=== PATIENT | female | born 1990 | race Asian ===

== ENCOUNTER 2019-07-09 19:27 | Emergency (ER) | payer OTHER ==
[~2019-07-09] VITALS: Ht 167.6 cm; Wt 53.5 kg
[2019-07-09] MEDS ORDERED: PHENERGAN SUPP25 MG RECTAL (19:34)
--- NOTE | 2019-07-09 19:40 | NUR ---
ER Nurse Note: Pt walked in c/o LT knee pain injury d/t falling off bird scooter. Pt stated her scooter landed on her knee around 1920. Open wound, bleeding, fatty tissue showing; site raised, warm to touch. Cap refill less than 3 sec, pedial pulses felt bilaterally, strong and equal. Will continue to montior.
[2019-07-09] MEDS ORDERED: Lidocaine 2% 20mg/ml/Epi 0.005mg/ml 20ml vial INJ ONE (20:00)
[2019-07-09] MEDS ORDERED: HYDROcodone/Acetamin 5/325 tab ORAL ONE (20:00)
--- NOTE | 2019-07-09 20:46 | Diagnostic Imaging Report ---
INDICATION: Knee Pain COMPARISON: None 3 views of the left knee were obtained. FINDINGS: There is a soft tissue air noted over the anterior part of the knee. Part of this is a laceration injury. There may be air in the joint. No acute fracture or radiopaque foreign body are identified. IMPRESSION: Soft tissue laceration. Joint effusion and intra-articular air may be present.
--- NOTE | 2019-07-09 21:00 | NUR ---
ER Nurse Note: ER PA applying kenny with assist of audiovisual aids technician. All orders completed per ER PA orders. Pt a&ox4, VSS, pedal pulses felt before procedure. Will continue to montior
--- NOTE | 2019-07-09 21:25 | Emergency Room Report ---
History of Present Illness General Chief Complaint: Lower Extremity Injury Source: Patient Present Illness HPI 29-year-old female presents to the emergency department complaining of 7 and 10 in severity localized pain to the left knee area status post mechanical fall off of a bird scooter prior to arrival. Patient reports falling into gravel and she sustained a laceration to left knee among several abrasions to the dorsum of the bilateral feet. Patient states she did not hit her head she did not lose consciousness and she does not have any midline neck or back pain. Patient reports she is able to bear weight she reports palpation near the laceration causes her pain. She denies paresthesias she denies persistent bleeding. Patient denies taking blood thinning medications. Patient states she is up-to-date with her tetanus. No aggravating or relieving factors otherwise. Allergies: Coded Allergies: No Known Allergies (Unverified , 07/09/19) Patient History Past Medical History: see triage record Past Surgical History: none Pertinent Family History: none Last Menstrual Period: 06/11/19 Now: No Immunizations: UTD Reviewed Nursing Documentation: PMH: Agreed; PSxH: Agreed Nursing Documentation-PMH Past Medical History: No Stated History Review of Systems All Other Systems: negative except mentioned in HPI Physical Exam Vital Signs Date Time Temp Pulse Resp B/P (MAP) Pulse Ox O2 Delivery O2 Flow Rate FiO2 07/09/19 19:31 98.1 67 18 112/73 (86) 100 Room Air Sp02 EP Interpretation: reviewed, normal General Appearance: no apparent distress, alert, GCS 15, non-toxic Head: normocephalic, atraumatic Eyes: bilateral eye normal inspection, bilateral eye PERRL ENT: hearing grossly normal, normal voice Neck: full range of motion Respiratory: chest non-tender, lungs clear, normal breath sounds, speaking full sentences Cardiovascular #1: regular rate, rhythm, normal capillary refill Cardiovascular #2: 2+ dorsalis pedis (L) - post. tib. Musculoskeletal: back normal, gait/station normal - Compensatory favoring the left leg. able to bear weight, normal range of motion, tender - TTP to the anterior left knee, abrasion and bruising noted. Laceration just proximal to the Left knee that is grossly contaminated. No increased laxity, no obvious bony deformity. Neurologic: alert, oriented x3, responsive, motor strength/tone normal, sensory intact, speech normal, grossly normal Psychiatric: judgement/insight normal Skin: laceration - Left distal Thigh laceration just proximal to the knee, it is approx 8 cm in length, grossly contaminated. , abrasion - superficial abrasions to the dorsum of the feet bilaterally. Procedures Laceration/Wound Repair Laceration/Wound Repair : Consent: Verbal Wound Location: lower extremity - Left knee Wound's Depth, Shape: flap Wound Explored: contaminated Irrigated w/ Saline (ccs): 1000 Anesthesia: Lidocaine w/ Epi Volume Anesthetic (ccs): 9 Wound Repaired With: kenny Layer Closure?: No Sterile Dressing Applied?: Yes Splint Applied?: Yes Type of Splint Applied: Left Knee Immobilizer Sling Applied?: No Patient Tolerated: Well Complications: None Medical Decision Making PA Attestation Dr. Bell Is my supervising Physician whom patient management has been discussed with. Diagnostic Impression: Primary Impression: Laceration of knee Qualified Codes: S81.012A - Laceration without foreign body, left knee, initial encounter Additional Impression: Abrasions of multiple sites ER Course 29-year-old female presents to the emergency department complaining of 7 and 10 in severity localized pain to the left knee area status post mechanical fall off of a bird scooter prior to arrival. Patient reports falling into gravel and she sustained a laceration to left knee among several abrasions to the dorsum of the bilateral feet. Patient states she did not hit her head she did not lose consciousness and she does not have any midline neck or back pain. Patient reports she is able to bear weight she reports palpation near the laceration causes her pain. She denies paresthesias she denies persistent bleeding. Patient denies taking blood thinning medications. Patient states she is up-to-date with her tetanus. No aggravating or relieving factors otherwise. Ddx considered but are not limited to laceration, tendon injury, cellulitis, amputation Vital signs: are WNL, pt. is afebrile H&PE are most consistent with: Left distal Thigh laceration just proximal to the knee, it is approx 8 cm in length, grossly contaminated. ORDERS: Left KNee 3 views: WNL, no radiopaque FB's noted. ( x-ray taken after copious pressure irrigation with 1000cc's NS ED INTERVENTIONS: - Leck Kill PO - The wound was copiously irrigated with normal saline, and explored for residual contaminant foreign bodies for which no obvious fb's were found. - pt. is anesthetized with 1%lidocaine w. epi. - The wound was approximated and closed using 12 Kenny. -Bacitracin and sterile dressing is applied. -Knee Immobilizer splint applied to the Left Knee by aerospace technician. Pt. remains neurovascularly intact. --Patient is provided with crutches and instructed on their use Discussed with patient: That we make every effort to approximate the laceration as best as we can so that scarring will be as cosmetically pleasing as possible with our limited cosmetic skill set in the Emergency dept. Regardless of our best efforts there will be scarring after laceration repair. The extent of scarring is unknown at this time. DISCHARGE: At this time pt. is stable for d/c to home. Will provide printed patient care instructions, and any necessary prescriptions. Care plan and follow up instructions have been discussed with the patient prior to discharge. Last Vital Signs Date Time Temp Pulse Resp B/P (MAP) Pulse Ox O2 Delivery O2 Flow Rate FiO2 07/09/19 19:31 98.1 67 18 112/73 (86) 100 Room Air Status: improved Disposition: HOME, SELF-CARE Condition: Stable Patient Instructions: Contusion, [id number], Laceration Care, Adult Additional Instructions: Take medications as directed. KENNY TO BE REMOVED IN 14 DAYS, Keep Knee IMMOBILIZED until then. Do not submerge into water for 1 week. Follow up with a Primary Care Provider in 3-5 days, even if your symptoms have resolved. Return sooner to ED if new symptoms occur, or current symptoms become worse. Do not drink alcohol, drive, or operate heavy machinery while taking Tylenol # 3 as this may cause drowsiness. - Please note that this Emergency Department Report was dictated using [employer] battery builder technology software, occasionally this can lead to erroneous entry secondary to interpretation by the dictation equipment. Padmini Monge Jul 09, 2019 21:25
[2019-07-09] MEDS ORDERED: Neosporin Oint Ud Pkt TOPIC ONE (21:30)
[2019-07-09] MEDS ORDERED: MEDERMA20 GM TP (21:33)
[2019-07-09] MEDS ORDERED: BACITRACIN-P28.35 GM TP (21:33)
[2019-07-09] MEDS ORDERED: IBUPROFEN400 MG ORAL (21:33)
[2019-07-09] MEDS ORDERED: ACETAMINOPHEN-1 EAC1 ORAL (21:33)
[2019-07-09 22:00] VITALS: BP 112/73
--- NOTE | 2019-07-09 22:00 | NUR ---
ER Nurse Note: Pt seen, treated, medically cleared for discharge by ER PA. Discharge instuctions and prescriptions given with repeat verbalization by pt. Emphasized to follow up with primay care provider; take whole course of medication. Explained each medication. All orders completed per ERMD orders. Pt a&ox4, VSS, no signs of distress. ID band removed. Skin stapled by ER PA. Site clean and bandaged by news gathering technician. Brace applied with crutch teaching. Provided pt with supplies for further care. All questions answered per pt's questions. Pt left with all belongings, left with own transportation.
== END 2019-07-09 22:00 | disposition home or self-care (01) ==
LOC: EMR 19:55
DX: S81.012A Laceration without foreign body, left knee, initial encounter (principal); T14.8XXA Other injury of unspecified body region, initial encounter; W05.2XXA Fall from non-moving motorized mobility scooter, initial encounter; Y92.410 Unspecified street and highway as the place of occurrence of the external cause
CPT/HCPCS: 29505; 99283